=== PATIENT | male | born 1965 | race Caucasian/White ===

== ENCOUNTER 2022-08-17 22:57 | Emergency (ER) | payer OTHER ==
[~2022-08-17] VITALS: Ht 180.3 cm; Wt 104.5 kg
== END 2022-08-18 02:09 | disposition left against medical advice (07) ==
LOC: ER 23:01
DX: R07.9 Chest pain, unspecified (principal); Z53.21 Procedure and treatment not carried out due to patient leaving prior to being seen by health care provider
CPT/HCPCS: 93005; 99281